=== PATIENT | female | born 1975 ===

== ENCOUNTER 2019-07-05 12:00 | Inpatient (IN) | payer OTHER ==
[~2019-07-05] VITALS: Ht 162.6 cm; Wt 86.2 kg
[2019-07-05] MEDS ORDERED: ZOLOFT50 MG PO (14:23)
[2019-07-30] MEDS ORDERED: PERCOCET 5-3251 EACH PO (12:32)
[2019-07-30] MEDS ORDERED: COLACE100 MG PO (12:33)
[2019-07-30] MEDS ORDERED: PYRIDIUM200 MG PO (12:33)
[2019-07-30] MEDS ORDERED: FLAGYL500MG PO (12:35)
== END 2019-07-30 12:54 | disposition home or self-care (01) | DRG 355 ==
LOC: O/R 12:00 → CIR.AMB 07-07 06:00 → SURH 07-07 07:00 → EDSTATUS 07-07 12:00 → CIR.AMB 07-07 12:00 → SURH 07-07 12:00 → CIR.AMB 07-28 07:00 → SURH 07-28 07:04 → O/R 07-28 07:04 → CIR.AMB 07-28 12:00 → SURH 07-28 12:00 → EDSTATUS 07-28 12:00 → OB/GYN 07-29 07:39 → O/R 07-29 08:26 → SURH 07-29 08:44
PROVIDERS: Surgery; ADMIT Obstetrics & Gynecology
PROC: 0UT90ZZ Resection of Uterus, Open Approach (ICD-10-PCS; 2019-07-28)
PROC: 0USG0ZZ Reposition Vagina, Open Approach (ICD-10-PCS; 2019-07-28)
PROC: 0WQF0ZZ Repair Abdominal Wall, Open Approach (ICD-10-PCS; principal; 2019-07-28 07:00)
PROC: 0WBF0ZZ Excision of Abdominal Wall, Open Approach (ICD-10-PCS; 2019-07-28 07:00)
DX: K42.0 Umbilical hernia with obstruction, without gangrene (principal); D50.8 Other iron deficiency anemias; D25.1 Intramural leiomyoma of uterus; D25.0 Submucous leiomyoma of uterus; D25.2 Subserosal leiomyoma of uterus; N80.3 Endometriosis of pelvic peritoneum; N80.0 Endometriosis of uterus